=== PATIENT | female | born 1970 | race Caucasian/White ===

== ENCOUNTER → 2016-07-14 | Outpatient (CLI) | payer BC, OTHER ==
--- NOTE | 2016-07-15 10:50 | MM ---
Reason for exam: screening (asymptomatic). Last mammogram was performed 1 year ago. History: Family history of breast cancer in cousin at age 45. Took hormonal contraceptives for 7 years beginning at age 15. Physical Findings: A clinical breast exam by your physician is recommended on an annual basis and results should be correlated with mammographic findings. MG Screening Mammo w CAD Bilateral CC and MLO view(s) were taken. Prior study comparison: July 10, 2015, bilateral MG screening mammo w CAD. June 21, 2014, bilateral MG screening mammo w CAD. There are scattered fibroglandular densities. There is no discrete abnormality. No significant changes when compared with prior studies. ASSESSMENT: Negative, BI-RAD 1 RECOMMENDATION: Routine screening mammogram of both breasts in 1 year.
== END | disposition home or self-care (01) ==
LOC: RADMAMWWP 07:39
PROVIDERS: ATTEND Family Medicine
DX: Z12.31 Encounter for screening mammogram for malignant neoplasm of breast (principal)

== ENCOUNTER → 2016-08-26 | Outpatient (CLI) | payer BC | END | disposition home or self-care (01) | LOC: LABWHC1 11:35 | PROVIDERS: ATTEND Family Medicine | DX: R06.02 Shortness of breath (principal) | CPT/HCPCS: 36415; 93005 ==

== ENCOUNTER → 2016-08-27 | Outpatient (CLI) | payer BC ==
--- NOTE | 2016-08-27 08:33 | XR ---
EXAMINATION TYPE: XR chest 2V DATE OF EXAM: 08/27/2016 COMPARISON: Chest x-ray December 02, 2015. HISTORY: Shortness of breath with chest pain for 2 weeks. TECHNIQUE: Frontal and lateral views of the chest are obtained. FINDINGS: There is no focal air space opacity, pleural effusion, or pneumothorax seen. The cardiac silhouette size is within normal limits. The osseous structures are intact. IMPRESSION: No acute cardiopulmonary process. No significant change from prior.
== END | disposition home or self-care (01) ==
LOC: RADXRMAIN 08:07
PROVIDERS: ATTEND Family Medicine
DX: R06.02 Shortness of breath (principal)
CPT/HCPCS: 71020

== ENCOUNTER → 2016-09-15 | Outpatient (CLI) | payer BC ==
--- NOTE | 2016-09-15 10:16 | ECHOF ---
Referral Reason:R00.2 palpitations MEASUREMENTS -------- HEIGHT: 165.1 cm WEIGHT: 63.5 kg BP: 113/55 IVSd: 0.5 cm (0.6 - 1.1) LVIDd: 3.6 cm (3.9 - 5.3) LVPWd: 0.9 cm (0.6 - 1.1) IVSs: 1.1 cm LVIDs: 2.1 cm LVPWs: 1.3 cm Ao Diam: 2.4 cm (2.0 - 3.7) AV Cusp: 1.7 cm (1.5 - 2.6) LA Diam: 2.9 cm (2.7 - 3.8) MV EXCURSION: 9.870 mm (> 18.000) MV EF SLOPE: 111 mm/s (70 - 150) EPSS: 0.5 cm MV E Michael: 0.92 m/s MV DecT: 143 ms MV A Michael: 0.68 m/s MV E/A Ratio: 1.37 RAP: 5.00 mmHg RVSP: 15.61 mmHg FINDINGS -------- Sinus rhythm. This was a technically good study. Left ventricular wall thickness is normal. Overall left ventricular systolic function is normal with, an EF between 55 - 60 %. The right ventricle is normal in size and function. The left atrium is normal in size. The right atrium is normal in size. The aortic valve is trileaflet, and appears structurally normal. No aortic stenosis or regurgitation. The mitral valve leaflets are mildly thickened. Mild mitral regurgitation is present. Mild tricuspid regurgitation present. The right ventricular systolic pressure, as measured by Doppler, is 15.61mmHg. Pulmonic valve appears structurally normal. The aortic root size is normal. The pericardium is normal. CONCLUSIONS -------- 1. Sinus rhythm. 2. Mild mitral regurgitation is present. 3. Mild tricuspid regurgitation present. 4. The right ventricular systolic pressure, as measured by Doppler, is 15.61mmHg. 5. Pulmonic valve appears structurally normal. 6. The aortic root size is normal. 7. The pericardium is normal. 8. This was a technically good study. 9. Left ventricular wall thickness is normal. 10. Overall left ventricular systolic function is normal with, an EF between 55 - 60 %. 11. The right ventricle is normal in size and function. 12. The left atrium is normal in size. 13. The right atrium is normal in size. 14. The aortic valve is trileaflet, and appears structurally normal. No aortic stenosis or regurgitation. 15. The mitral valve leaflets are mildly thickened. EARLY CHILDHOOD SPECIAL EDUCATOR: Lizbet Ramsay RDCS
== END | disposition home or self-care (01) ==
LOC: RADECHMAIN 08:22
PROVIDERS: ATTEND Family Medicine
DX: I08.1 Rheumatic disorders of both mitral and tricuspid valves (principal)
CPT/HCPCS: 93306

== ENCOUNTER → 2017-05-19 | Outpatient (CLI) | payer BC ==
[2017-05-19 08:19] LABS: Basophils % (A) 0 %; Eosinophils # (A) 0.1 k/uL (0-0.7); Eosinophils % (A) 2 %; HCT 41.7 % (34.0-46.0); HGB 13.7 gm/dL (11.4-16.0); Lymphocytes # (A) 1.7 k/uL (1.0-4.8); Lymphocytes % (A) 36 %; MCH 31.2 pg (25.0-35.0); MCV 94.6 fL (80.0-100.0); Monocytes # (A) 0.3 k/uL (0-1.0); Monocytes % (A) 6 %; Neutrophils # (A) 2.6 k/uL (1.3-7.7); Neutrophils % (A) 54 %; Platelet Count 247 k/uL (150-450); RBC 4.41 m/uL (3.80-5.40); WBC 4.7 k/uL (3.8-10.6)
[2017-05-19 08:29] LABS: ALT 30 U/L (9-52); AST 27 U/L (14-36); Albumin 4.3 g/dL (3.5-5.0); Alkaline Phosphatase 111 U/L (38-126); Amylase 87 U/L (30-110); Anion Gap 7 mmol/L; Blood Urea Nitrogen 15 mg/dL (7-17); Calcium 10.1 mg/dL (8.4-10.2); Carbon Dioxide 30 mmol/L (22-30); Chloride 102 mmol/L (98-107); Glucose 85 mg/dL (74-99); Potassium 4.9 mmol/L (3.5-5.1); Sodium 139 mmol/L (137-145); Total Bilirubin 0.7 mg/dL (0.2-1.3); Total Protein 7.2 g/dL (6.3-8.2)
--- NOTE | 2017-05-19 10:28 | CT ---
EXAMINATION TYPE: CT abdomen w con DATE OF EXAM: 05/19/2017 HISTORY: Right upper quadrant pain. Single kidney CT DLP: 283.60mGycm Automated Exposure Control for Dose Reduction was Utilized. CONTRAST: CT scan of the abdomen is performed with IV Contrast, patient injected with 100 ml mL of Omnipaque 30 0. COMPARISON: 03/09/2017. FINDINGS: LUNG BASES: No significant abnormality is appreciated. LIVER/GB/PANCREAS: The liver is unremarkable in enhancement. Although there are no right upper quadra nt fat stranding changes there is enlargement of the common bile duct measuring up to 7 mm on series 7 image 32 and 34. Pancreatic duct is prominent within the pancreatic body as it measures 3 mm on ser ies 7 image 29 and is also prominent on image 28 of series 7. No peripancreatic fat stranding is seen . No gross evidence of pancreatic mass is identified. The finding of common bile duct dilatation was also identified on the exam of 03/09/2017. No evidence of cholelithiasis. SPLEEN: No significant abnormality is seen. No nodularity. ADRENALS: No significant abnormality is seen. No splenomegaly. KIDNEYS: The left kidney is surgically absent and bowel has prolapsed into the retroperitoneum. BOWEL: No significant abnormality is seen. LYMPH NODES: No greater than 1cm abdominal or pelvic lymph nodes are appreciated. OSSEOUS STRUCTURES: Very minimal degenerative changes of the lumbar spine are noted. IMPRESSION: 1. Common bile duct dilatation without identifiable distal stricture or obstructing mass. No radiopaq ue calculus is seen. MRCP with and without contrast could BE performed to further evaluate for distal obstructing ampullary mass, stricture, or pancreatic mass is the pancreatic duct is mildly prominent . Alternatively if serum laboratory values or abnormal HIDA scan could be performed to evaluate for c holecystitis. 2. Surgical absence of the left kidney.
== END | disposition home or self-care (01) ==
LOC: RADCTMAIN 07:37
PROVIDERS: ATTEND Surgery
DX: K83.8 Other specified diseases of biliary tract (principal); Z90.5 Acquired absence of kidney
CPT/HCPCS: 80053; 82150; 85025; 74160; 36415; Q9967

== ENCOUNTER → 2017-06-07 | Outpatient (CLI) | payer BC ==
--- NOTE | 2017-06-07 09:15 | MR ---
EXAMINATION TYPE: MR MRCP DATE OF EXAM: 06/07/2017 COMPARISON: NONE HISTORY: Right sided pain Standard multiplanar, multisequence MRI departmental protocol Multiplanar, multisequence images of the biliary tree were acquired. Multiple 3-D rotating images are reviewed. Diffusion weighted imaging was performed. FINDINGS: Gallbladder and biliary tree: The gallbladder is of normal caliber. No evidence for wall thickening. No filling defect to suggest cholelithiasis. No evidence for intrahepatic biliary ductal dilatation. Common bile duct is mildly prominent at 7 mm. No filling defects are evident. Mild narrowing suggeste d at the ampulla of Vater without distinct mass. If symptoms persist consider direct visualization. Liver: 2 mm hepatic cyst left hepatic lobe. 3 mm cyst left hepatic lobe medial segment. 3 mm cyst klever r the caudate lobe. No solid hepatic mass is detected. Pancreas: No distinct pancreatic mass. Pancreatic duct is minimally prominent at 3 mm. Kidneys: Solitary right kidney. No evidence for mass hydronephrosis or nephrolithiasis. Abdominal aorta: Normal caliber as visualized. Adrenal glands: No evidence for adrenal mass. Spleen: Normal IMPRESSION: 1. Mild prominence of the common bile duct and pancreatic duct with the suggestion of a narrowing at the level of the ampulla of Vater without distinct mass. If symptoms persist consider direct visualiz ation.
== END | disposition home or self-care (01) ==
LOC: RADMRIMAIN 07:47
PROVIDERS: ATTEND Surgery
DX: K83.8 Other specified diseases of biliary tract (principal)
CPT/HCPCS: 74181

== ENCOUNTER 2017-06-15 12:09 | Day surgery (SDC) | payer BC ==
[2017-06-14 11:53] VITALS: BMI 21.6
[~2017-06-15 12:09] MED LIST: INDOMETHACIN 50MG SUPPOSITORY RECTAL ONE; LACTATED RINGERS 1,000 ML IV SCH; LEVOFLOXACIN 500MG-D5W PMX 500 MG in DEXTROSE/WATER 1 100ML.BAG IVPB ONE; LIDOCAINE 1% 20 ML VIAL (10MG/ML) FOR IV START INTRADERMA PRN
[2017-06-15 12:35] VITALS: RESP 16; TEMP 98.1
[2017-06-15] MEDS: LACTATED RINGERS 1,000 ML IV NR ×2 (12:53→13:40)
[2017-06-15 12:55] LABS: Basophils # (A) 0.1 k/uL (0-0.2); Basophils % (A) 1 %; Eosinophils # (A) 0.1 k/uL (0-0.7); Eosinophils % (A) 1 %; HCT 40.5 % (34.0-46.0); HGB 14.5 gm/dL (11.4-16.0); Lymphocytes # (A) 2.3 k/uL (1.0-4.8); Lymphocytes % (A) 36 %; MCH 32.2 pg (25.0-35.0); MCHC 35.8 g/dL (31.0-37.0); Mean Platelet Volume 6.7; Monocytes # (A) 0.4 k/uL (0-1.0); Monocytes % (A) 6 %; Neutrophils # (A) 3.4 k/uL (1.3-7.7); Neutrophils % (A) 54 %; Platelet Count 242 k/uL (150-450); RDW 11.6 % (11.5-15.5); WBC 6.2 k/uL (3.8-10.6)
[2017-06-15 13:09] LABS: Prothrombin Time 10.2 sec (9.0-12.0)
[2017-06-15 13:11] LABS: Albumin 4.4 g/dL (3.5-5.0); Potassium 4.4 mmol/L (3.5-5.1); Total Bilirubin 0.7 mg/dL (0.2-1.3); Total Protein 7.4 g/dL (6.3-8.2)
[2017-06-15] MEDS ORDERED: LIDOCAINE 1% INJ 10MG/ML (20 ML MDV) ONE (13:40)
[2017-06-15] MEDS ORDERED: MIDAZOLAM 2 MG/2 ML VIAL ONE (13:40)
[2017-06-15] MEDS ORDERED: fentaNYL (PF) 50 MCG/ML 2 ML AMP ONE (13:40)
[2017-06-15] MEDS ORDERED: PROPOFOL 10 MG/ML 20 ML VIAL IV ONE (13:40)
[2017-06-15] MEDS ORDERED: IOHEXOL 350 MG/ML 50ML BOTTLE INJ ONE ×2 (13:45→14:01)
--- NOTE | 2017-06-15 14:34 | FL ---
EXAMINATION TYPE: FL ERCP biliary duct only DATE OF EXAM: 06/15/2017 COMPARISON: NONE HISTORY: Dilated common bile duct, K 83.8 Fluoroscopy support supplied to the referring clinician. See dictated report from gastroenterology, 2.19 minutes fluoroscopy time supplied to the referring clinician, 3 intraoperative C-arm images docu ment the procedure
--- NOTE | 2017-06-15 14:35 | P.PCN ---
Date of Procedure: 06/15/17 Procedure(s) Performed: Procedure: Endoscopic retrograde cholangiography. Preoperative diagnosis: History of abdominal pain and abnormal imaging studies. Postoperative diagnosis: Slight dilation of the common bile duct but no evidence of strictures, filling defects or cystic duct obstruction. Preparation and sedation: Was provided by anesthesia. Brief clinical history: The patient is a 46-year-old female who was scheduled for this evaluation because of history of burning upper abdominal pains and abnormalities initially noted on the ultrasound 03/09/2017 with a dilated common bile duct at 8 mm, with similar findings on computed tomography scan performed 05/19/2017 which showed dilation of the common bile duct without identifiable distal stricture or obstructing mass or any residual opaque calculus. An MRI performed 06/07/2017 showed mild prominence of the common bile duct and pancreatic duct with a suggestion of a narrowing at the level of the ampulla without distinct mass. Procedure: With the patient on her prone position and after informed consent and adequate sedation, I passed the Olympus video duodenoscope down the esophagus into the stomach then passed it through the pylorus into the duodenum. There was no obvious abnormalities noted in the stomach or duodenum. The papilla looked normal. Initial cannulation and injection with dye resulted in opacification of the CBD and biliary tree. There was slight dilation of the common bile duct but no evidence of strictures, encasement, filling defects or cystic duct obstruction. Multiple spot films were obtained. With this finding I did not make any attempt to visualize the pancreatic duct and the endoscope was withdrawn. The patient tolerated the procedure well. Plan: The patient was reassured and I discussed with both herself and her . We will follow her clinical course closely. Repeat laboratory testing and imaging studies could be planned in the future depending on her course.
[2017-06-15 14:47] VITALS: BP 133/77; PULSE 67
== END 2017-06-15 15:01 | disposition home or self-care (01) ==
LOC: ORWHC2ENDO 12:09
DX: K83.8 Other specified diseases of biliary tract (principal); K21.9 Gastro-esophageal reflux disease without esophagitis; M79.7 Fibromyalgia; E07.9 Disorder of thyroid, unspecified; Z88.5 Allergy status to narcotic agent; Z88.8 Allergy status to other drugs, medicaments and biological substances; Z79.890 Hormone replacement therapy; Z79.899 Other long term (current) drug therapy
CPT/HCPCS: 81025; 80053; 85025; 85610; 85730; 74328; 43260; J2250; J1956; J2001; J3010; J2704; Q9967; 43261

== ENCOUNTER → 2017-09-02 | Outpatient (CLI) | payer BC ==
--- NOTE | 2017-09-06 08:16 | MM ---
Reason for exam: screening (asymptomatic). Last mammogram was performed 1 year and 2 months ago. History: Family history of breast cancer in cousin at age 45. Took hormonal contraceptives for 7 years beginning at age 15. Physical Findings: A clinical breast exam by your physician is recommended on an annual basis and results should be correlated with mammographic findings. MG Screening Mammo w CAD Bilateral CC and MLO view(s) were taken. Prior study comparison: July 14, 2016, bilateral MG screening mammo w CAD. July 10, 2015, bilateral MG screening mammo w CAD. There are scattered fibroglandular densities. No significant changes when compared with prior studies. ASSESSMENT: Negative, BI-RAD 1 RECOMMENDATION: Routine screening mammogram of both breasts in 1 year.
== END | disposition home or self-care (01) ==
LOC: RADNMMAIN 12:34
PROVIDERS: ATTEND Family Medicine
DX: Z12.31 Encounter for screening mammogram for malignant neoplasm of breast (principal); R07.89 Other chest pain
CPT/HCPCS: 77067

== ENCOUNTER → 2017-09-29 | Outpatient (CLI) | payer BC ==
--- NOTE | 2017-09-29 12:35 | EST ---
EXERCISE STRESS AGE: 46 SEX: F HT: 5'5" WT: 130 PROTOCOL: Ja Stress Test STAGE: II DURATION OF EXERCISE: 7:00 HEART RATE REST: 71 BLOOD PRESSURE REST: 117/88 MAXIMUM HEART RATE ACHIEVED: 163 MAXIMUM BLOOD PRESSURE: 193/84 85% MPHR: 146 100% MPHR: 172 METS: 8.5 INDICATIONS: Chest pain. CLINICAL INFORMATION: Yessy Nicholas is a 46-year-old female referred by Dr. Zapata for evaluation of chest pain and nausea. Baseline heart rate 71 beats per minute. Baseline blood pressure 117/88 mmHg. Baseline 12-lead ECG shows normal sinus rhythm with subtle early repolarization abnormality inferolaterally. Patient exercised on a Ja protocol for 7 minutes achieving a peak heart rate of 163 beats per minute. Normal blood pressure response to exercise. No chest pain. She denied shortness of breath and tiredness at peak exercise. No ECG evidence for ischemia. No arrhythmias noted. Normal blood pressure in response to exercise. MMODL / IJN: [id number] /
== END | disposition home or self-care (01) ==
LOC: RADNMMAIN 08:29
PROVIDERS: ATTEND Family Medicine
DX: R07.89 Other chest pain (principal)
CPT/HCPCS: 93017

== ENCOUNTER → 2018-02-08 | Outpatient (CLI) | payer BC | END | disposition home or self-care (01) | LOC: LABWHC1 12:01 | PROVIDERS: ATTEND Surgery | DX: Z52.4 Kidney donor (principal) | CPT/HCPCS: 36415; 82565; 84156 ==

== ENCOUNTER → 2018-11-04 | Outpatient (CLI) | payer BC ==
--- NOTE | 2018-11-08 09:29 | MM ---
Reason for exam: screening (asymptomatic). Last mammogram was performed 1 year and 2 months ago. History: Patient is postmenopausal. Family history of breast cancer in cousin at age 45. Took hormonal contraceptives for 7 years beginning at age 15. Physical Findings: A clinical breast exam by your physician is recommended on an annual basis and results should be correlated with mammographic findings. MG Screening Mammo w CAD Bilateral CC and MLO view(s) were taken. Prior study comparison: September 02, 2017, bilateral MG screening mammo w CAD. July 14, 2016, bilateral MG screening mammo w CAD. There are scattered fibroglandular densities. No significant changes when compared with prior studies. ASSESSMENT: Negative, BI-RAD 1 RECOMMENDATION: Routine screening mammogram of both breasts in 1 year.
== END ==
LOC: RADMAMWWP 14:54
PROVIDERS: ATTEND Family Medicine
DX: Z12.31 Encounter for screening mammogram for malignant neoplasm of breast (principal)
CPT/HCPCS: 77067

== ENCOUNTER 2019-04-26 10:00 | Day surgery (SDC) | payer BC ==
[2019-04-24 09:26] VITALS: BMI 22.3
--- NOTE | 2019-04-26 08:41 | P.GSHP ---
History of Present Illness H&P Date: 04/26/19 CHIEF COMPLAINT: Colon screen HISTORY OF PRESENT ILLNESS: The patient is a 48-year-old female who presents for colon screen. Lower endoscopy was offered for further evaluation and management. PAST MEDICAL HISTORY: Please see list. PAST SURGICAL HISTORY: Please see list. MEDICATIONS: Please see list. ALLERGIES: Please see list. SOCIAL HISTORY: No illicit drug use FAMILY HISTORY: No reports of Crohn disease or ulcerative colitis. REVIEW OF ORGAN SYSTEMS: CONSTITUTIONAL: No reports of fevers or chills. PHYSICAL EXAM: VITAL SIGNS: Stable GENERAL: Well-developed pleasant in no acute distress. HEENT: No scleral icterus. Extraocular movements grossly intact. Moist buccal mucosa. NECK: Supple without lymphadenopathy. CHEST: Unlabored respirations. Equal bilateral excursions. CARDIOVASCULAR: Regular rate and rhythm. Distal 2+ pulses. ABDOMEN: Soft, nontender, nondistended. MUSCULOSKELETAL: No clubbing, cyanosis, or edema. ASSESSMENT: 1. Colon screen. PLAN: 1. Recommend proceeding with a lower endoscopy Past Medical History Past Medical History: Thyroid Disorder Additional Past Medical History / Comment(s): UPPER ABDOMINAL PAIN History of Any Multi-Drug Resistant Organisms: None Reported Additional Past Surgical History / Comment(s): LEFT KIDNEY REMOVED- DONATION , OLD BLOOD CLOT REMOVED NEAR LEFT SHOULDER Past Anesthesia/Blood Transfusion Reactions: Postoperative Nausea & Vomiting (PONV) Smoking Status: Former smoker - Past Family History Father Family Medical History: Cancer Additional Family Medical History / Comment(s): LUNG CANCER Medications and Allergies Home Medications Medication Instructions Recorded Confirmed Type ALPRAZolam [Xanax] 1 mg PO BID PRN 06/14/17 04/24/19 History Acetaminophen Tab [Tylenol Tab] 650 mg PO Q4H 06/14/17 04/24/19 History Citalopram Hydrobromide [CeleXA] 40 mg PO DAILY 06/14/17 04/24/19 History Gabapentin [Neurontin] 100 mg PO BID 06/14/17 04/24/19 History Levothyroxine Sodium [Synthroid] 112 mcg PO DAILY 06/14/17 04/24/19 History Calcium Carbonate [Calcium] 600 mg PO DAILY 04/24/19 04/24/19 History Allergies Allergy/AdvReac Type Severity Reaction Status Date / Time metoclopramide [From Reglan] Allergy SEVERE Verified 04/24/19 09:20 SHAKING OF LEGS codeine AdvReac Vomiting Verified 04/24/19 09:20
[~2019-04-26 10:00] MED LIST changes: -INDOMETHACIN 50MG SUPPOSITORY RECTAL ONE; -LEVOFLOXACIN 500MG-D5W PMX 500 MG in DEXTROSE/WATER 1 100ML.BAG IVPB ONE
[2019-04-26 10:32] VITALS: TEMP 97.7
[2019-04-26] MEDS ORDERED: PROPOFOL 10 MG/ML 20 ML VIAL IV ONE (11:33)
[2019-04-26 12:54] VITALS: BP 119/82; PULSE 69; RESP 18
--- NOTE | 2019-05-04 10:54 | P.PCN ---
Date of Procedure: 04/26/19 Description of Procedure: PREOPERATIVE DIAGNOSIS: Colonoscopy screening. POSTOPERATIVE DIAGNOSIS: Colonoscopy screening. Diverticulosis, scattered. OPERATION: Colonoscopy to the ileocecal valve and appendiceal orifice. SURGEON: Tia Allen MD. ANESTHESIA: MAC. INDICATIONS: The patient is a 57-year-old female who presents for colonoscopy screening. Benefits and risks were described and informed consent was obtained. DESCRIPTION OF PROCEDURE: The patient had undergone Gatorade, MiraLAX and Dulcolax prep. He had been brought into the operating room and laid in the left lateral decubitus position. After adequate intravenous sedation, the rectum was examined with 2% lidocaine jelly. No external hemorrhoids were encountered. The rectal tone was within normal limits. No lesions were palpated in the rectal vault. An Olympus colonoscope was advanced until the ileocecal valve and appendiceal orifice were clearly viewed. The prep was excellent with clear visualization of the mucosal folds. The scope was removed with visualization of each mucosal fold. Scattered diverticulosis was encountered. No colonic polyps were found. No evidence of focal colitis was found. Retroflexion of the scope demonstrated grade 1 internal hemorrhoids without active bleeding or inflammation. The colon was desufflated. The patient had tolerated the procedure well. Withdrawal time was over 6 minutes. FINDINGS: Aronchick preparation quality scale (1-5) Internal hemorrhoids, grade 1 No external prolapsed hemorrhoids. No arteriovenous malformations. No adenomatous polyps. No focal colitis. RECOMMENDATIONS: Lower endoscopy every 10 years per screening guidelines; however down to 5 years with family history of colon polyps or cancer. Plan - Discharge Summary Discharge Rx Participant: No New Discharge Prescriptions: Continue Acetaminophen Tab [Tylenol] 650 mg PO Q4H Levothyroxine Sodium [Synthroid] 112 mcg PO DAILY Gabapentin [Neurontin] 100 mg PO BID Citalopram Hydrobromide [CeleXA] 40 mg PO DAILY ALPRAZolam [Xanax] 1 mg PO BID PRN PRN Reason: Anxiety Calcium Carbonate [Calcium] 600 mg PO DAILY Discharge Medication List ALPRAZolam [Xanax] 1 mg PO BID PRN 06/14/17 [History] Acetaminophen Tab [Tylenol] 650 mg PO Q4H 06/14/17 [History] Citalopram Hydrobromide [CeleXA] 40 mg PO DAILY 06/14/17 [History] Gabapentin [Neurontin] 100 mg PO BID 06/14/17 [History] Levothyroxine Sodium [Synthroid] 112 mcg PO DAILY 06/14/17 [History] Calcium Carbonate [Calcium] 600 mg PO DAILY 04/24/19 [History] Follow up Appointment(s)/Referral(s): Tia Allen MD [STAFF PHYSICIAN] - As Needed Patient Instructions/Handouts: *[facility] - (Anesthesia) Endoscopy Discharge Instructions Activity/Diet/Wound Care/Special Instructions: Repeat colonoscopy 10 years, 2030 or Cologaurd Discharge Disposition: HOME SELF-CARE
--- NOTE | 2019-05-04 10:55 | P.PCN ---
Date of Procedure: 04/26/19 Description of Procedure: PREOPERATIVE DIAGNOSIS: Colonoscopy screening. POSTOPERATIVE DIAGNOSIS: Colonoscopy screening. OPERATION: Colonoscopy to the ileocecal valve and appendiceal orifice. SURGEON: Tia Allen MD. ANESTHESIA: MAC. INDICATIONS: The patient is a 48-year-old female who presents for her first colonoscopy screening. Benefits and risks were described and informed consent was obtained. DESCRIPTION OF PROCEDURE: The patient had undergone Suprep. She had been brought into the operating room and laid in the left lateral decubitus position. After adequate intravenous sedation, the rectum was examined with 2% lidocaine jelly. No external hemorrhoids were encountered. The rectal tone was within normal limits. No lesions were palpated in the rectal vault. An Olympus colonoscope was advanced until the ileocecal valve and appendiceal orifice were clearly viewed. The prep was excellent with clear visualization of the mucosal folds. The scope was removed with visualization of each mucosal fold. No scattered diverticulosis was encountered. No colonic polyps were found. No evidence of focal colitis was found. Retroflexion of the scope demonstrated grade 1 internal hemorrhoids without active bleeding or inflammation. The colon was desufflated. The patient had tolerated the procedure well. Withdrawal time was over 6 minutes. FINDINGS: Aronchick preparation quality scale 1 (1-5) Internal hemorrhoids, grade 1 No external prolapsed hemorrhoids. No arteriovenous malformations. No adenomatous polyps. No focal colitis. No sigmoid diverticulosis RECOMMENDATIONS: Lower endoscopy in 10 years, 2030 or Cologaurd Plan - Discharge Summary Discharge Rx Participant: No New Discharge Prescriptions: Continue Acetaminophen Tab [Tylenol] 650 mg PO Q4H Levothyroxine Sodium [Synthroid] 112 mcg PO DAILY Gabapentin [Neurontin] 100 mg PO BID Citalopram Hydrobromide [CeleXA] 40 mg PO DAILY ALPRAZolam [Xanax] 1 mg PO BID PRN PRN Reason: Anxiety Calcium Carbonate [Calcium] 600 mg PO DAILY Discharge Medication List ALPRAZolam [Xanax] 1 mg PO BID PRN 06/14/17 [History] Acetaminophen Tab [Tylenol] 650 mg PO Q4H 06/14/17 [History] Citalopram Hydrobromide [CeleXA] 40 mg PO DAILY 06/14/17 [History] Gabapentin [Neurontin] 100 mg PO BID 06/14/17 [History] Levothyroxine Sodium [Synthroid] 112 mcg PO DAILY 06/14/17 [History] Calcium Carbonate [Calcium] 600 mg PO DAILY 04/24/19 [History] Follow up Appointment(s)/Referral(s): Tia Allen MD [STAFF PHYSICIAN] - As Needed Patient Instructions/Handouts: *[facility] - (Anesthesia) Endoscopy Discharge Instructions Activity/Diet/Wound Care/Special Instructions: Repeat colonoscopy 10 years, 2030 or Cologaurd Discharge Disposition: HOME SELF-CARE
== END 2019-04-26 12:32 | disposition home or self-care (01) ==
LOC: ORWHC2ENDO 10:00
PROVIDERS: ATTEND Surgery Plastic and Reconstructive Surgery
DX: Z12.11 Encounter for screening for malignant neoplasm of colon (principal); K64.0 First degree hemorrhoids; E07.9 Disorder of thyroid, unspecified; Z90.5 Acquired absence of kidney; Z87.891 Personal history of nicotine dependence; Z80.1 Family history of malignant neoplasm of trachea, bronchus and lung; F39 Unspecified mood [affective] disorder; Z79.890 Hormone replacement therapy; Z79.899 Other long term (current) drug therapy; Z88.5 Allergy status to narcotic agent; Z88.8 Allergy status to other drugs, medicaments and biological substances
CPT/HCPCS: J2704; G0121

== ENCOUNTER → 2019-11-30 | Outpatient (CLI) | payer BC ==
--- NOTE | 2019-12-01 11:12 | MM ---
Reason for exam: screening (asymptomatic). Last mammogram was performed 1 year and 1 month ago. History: Patient is postmenopausal. Family history of breast cancer in cousin at age 45. Took hormonal contraceptives for 7 years beginning at age 15. Physical Findings: A clinical breast exam by your physician is recommended on an annual basis and results should be correlated with mammographic findings. MG Screening Mammo w CAD Bilateral CC, MLO, and XCCL view(s) were taken. Prior study comparison: November 04, 2018, bilateral MG screening mammo w CAD. September 02, 2017, bilateral MG screening mammo w CAD. There are scattered fibroglandular densities. No significant changes when compared with prior studies. ASSESSMENT: Negative, BI-RAD 1 RECOMMENDATION: Routine screening mammogram of both breasts in 1 year.
== END | disposition home or self-care (01) ==
LOC: RADMAMWWP 16:12
PROVIDERS: ATTEND Family Medicine
DX: Z12.31 Encounter for screening mammogram for malignant neoplasm of breast (principal)
CPT/HCPCS: 77067

== ENCOUNTER → 2020-12-10 | Outpatient (CLI) | payer BC ==
--- NOTE | 2020-12-12 13:30 | MM ---
Reason for exam: screening (asymptomatic). Last mammogram was performed 1 year ago. History: Patient is postmenopausal. Family history of breast cancer in maternal cousin at age 45 and breast cancer in maternal aunt. Took hormonal contraceptives for 7 years beginning at age 15. Taking estrogen for 1 year. Taking progesterone for 1 year. Physical Findings: A clinical breast exam by your physician is recommended on an annual basis and results should be correlated with mammographic findings. MG Screening Mammo w CAD Bilateral CC and MLO view(s) were taken. Prior study comparison: November 30, 2019, bilateral MG screening mammo w CAD. November 04, 2018, bilateral MG screening mammo w CAD. There are scattered fibroglandular densities. No significant changes when compared with prior studies. ASSESSMENT: Negative, BI-RAD 1 RECOMMENDATION: Routine screening mammogram of both breasts in 1 year.
== END | disposition home or self-care (01) ==
LOC: RADMAMWWP 11:56
PROVIDERS: ATTEND Obstetrics & Gynecology
DX: Z12.31 Encounter for screening mammogram for malignant neoplasm of breast (principal); Z80.3 Family history of malignant neoplasm of breast; Z78.0 Asymptomatic menopausal state
CPT/HCPCS: 77067

== ENCOUNTER 2021-10-07 18:46 | Observation (INO) | payer BC ==
[2021-10-07] MEDS ORDERED: SODIUM CHLORIDE 0.9% 2,000 ML IV STA (19:05)
[2021-10-07] MEDS ORDERED: ACETAMINOPHEN TAB 500 MG TAB PO STA (19:27)
[2021-10-07 20:10] LABS: Basophils % (A) 0 %; Eosinophils # (A) 0.1 k/uL (0-0.7); Eosinophils % (A) 1 %; HCT 39.4 % (34.0-46.0); HGB 12.7 gm/dL (11.4-16.0); Lymphocytes # (A) 0.6 k/uL (1.0-4.8); Lymphocytes % (A) 8 %; MCH 31.9 pg (25.0-35.0); MCHC 32.3 g/dL (31.0-37.0); MCV 98.9 fL (80.0-100.0); Mean Platelet Volume 7.5; Monocytes # (A) 0.1 k/uL (0-1.0); Monocytes % (A) 2 %; Neutrophils # (A) 7.3 k/uL (1.3-7.7); Neutrophils % (A) 90 %; Platelet Count 156 k/uL (150-450); RBC 3.99 m/uL (3.80-5.40); RDW 11.9 % (11.5-15.5); WBC 8.2 k/uL (3.8-10.6)
--- NOTE | 2021-10-07 20:10 | ED ---
Female Urogenital HPI - General Chief complaint: Urogenital Stated complaint: UTI,Chills Time Seen by Provider: 10/07/21 18:52 Source: patient Mode of arrival: ambulatory Limitations: no limitations - History of Present Illness Initial comments: Patient is a 51-year-old female presenting with chief complaint of flank pain. 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 Patient has been experiencing 1 day of flank pain and chills, she was seen at her primary care office today and diagnosed with UTI. She was given a shot of Rocephin in the office and a prescription for Bactrim. Patient states as the day has gone on her chills have worsened and she is felt like her heart is racing. She took a combination ibuprofen and acetaminophen at 6:00 before coming here today. She states that her urine is malodorous and cloudy. She denies any dysuria, hematuria, urgency, frequency, abdominal pain, chest pain, shortness of breath, diarrhea, hematochezia, melena - Related Data Home Medications Medication Instructions Recorded Confirmed Citalopram Hydrobromide [CeleXA] 40 mg PO DAILY 06/14/17 10/07/21 Gabapentin [Neurontin] 100 mg PO BID 06/14/17 10/07/21 Levothyroxine Sodium [Synthroid] 112 mcg PO DAILY 06/14/17 10/07/21 ALPRAZolam [Xanax] 0.5 mg PO DAILY PRN 10/07/21 10/07/21 Albuterol Inhaler [Ventolin Hfa 2 puff INHALATION RT-Q4H PRN 10/07/21 10/07/21 Inhaler] Atorvastatin [Lipitor] 10 mg PO HS 10/07/21 10/07/21 Co Q-10 200mg 200 mg PO HS 10/07/21 10/07/21 [place]-3/Dha/Epa/Fish Oil [Fish Oil 1 cap PO HS 10/07/21 10/07/21 1,000 mg Softgel] Progesterone, Micronized 200 mg PO DAILY 10/07/21 10/07/21 [Progesterone] traZODone HCL [Desyrel] 100 mg PO HS 10/07/21 10/07/21 Allergies Allergy/AdvReac Type Severity Reaction Status Date / Time metoclopramide [From Reglan] Allergy SEVERE Verified 10/07/21 23:18 SHAKING OF LEGS codeine AdvReac Vomiting Verified 10/07/21 23:18 Review of Systems ROS Statement: Those systems with pertinent positive or pertinent negative responses have been documented in the HPI. ROS Other: All systems not noted in ROS Statement are negative. Past Medical History Past Medical History: Thyroid Disorder Additional Past Medical History / Comment(s): UPPER ABDOMINAL PAIN History of Any Multi-Drug Resistant Organisms: None Reported Additional Past Surgical History / Comment(s): LEFT KIDNEY REMOVED- DONATION , OLD BLOOD CLOT REMOVED NEAR LEFT SHOULDER Past Anesthesia/Blood Transfusion Reactions: Postoperative Nausea & Vomiting (PONV) Past Psychological History: Anxiety Smoking Status: Never smoker Past Alcohol Use History: Occasional Past Drug Use History: None Reported - Past Family History Father Family Medical History: Cancer Additional Family Medical History / Comment(s): LUNG CANCER General Exam Limitations: no limitations General appearance: alert, in no apparent distress Head exam: Present: atraumatic, normocephalic, normal inspection Eye exam: Present: normal appearance, EOMI. Absent: scleral icterus, periorbital swelling Neck exam: Present: normal inspection Respiratory exam: Present: normal lung sounds bilaterally. Absent: respiratory distress, wheezes, rales, rhonchi, stridor Cardiovascular Exam: Present: normal rhythm, tachycardia, normal heart sounds. Absent: systolic murmur, diastolic murmur, rubs, gallop, clicks GI/Abdominal exam: Present: soft. Absent: distended, tenderness, guarding, rebound, rigid Back exam: Present: normal inspection. Absent: CVA tenderness (R), CVA tenderness (L) Neurological exam: Present: alert, oriented X3, CN II-XII intact Psychiatric exam: Present: normal affect, normal mood Skin exam: Present: warm, dry, intact, normal color. Absent: rash Course Vital Signs 10/07/21 10/07/21 10/07/21 18:48 20:08 21:15 Temperature 98.3 F Pulse Rate 121 H 105 H 97 Respiratory 16 18 Rate Blood Pressure 150/85 108/69 O2 Sat by Pulse 100 98 98 Oximetry Medical Decision Making - Medical Decision Making Patient is a 51-year-old female presenting with chief complaint of right-sided flank pain, chills, and tachycardia. 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 On examination there is no CVA or abdominal tenderness. Patient has a temp 99.1 and is tachycardic at 120 bpm. She is given 2 L normal saline fluid bolus and placed on maintenance rate of 130 mL per hour. She is given Tylenol. No leukocytosis. Creatinine 1.26. Lactic acid 3.3. Mild transaminitis. Urine is cloudy, small blood, large leukocytes, there are urine WBC and WBC clumps, and few bacteria. CT of the abdomen and pelvis without contrast shows no evidence of pyelonephritis. Given the patie nt's nephrectomy and her initial presentation, he would be in her best interest to stay for IV antibiotics and further monitoring. Patient is given 2 g Rocephin. I spoke with Dr. Flores who agreed to admit the patient. I explained these findings and the plan to the patient, she conveyed verbal understanding and agreed to the plan. I discussed this case with my attending Dr. Pierre. - Lab Data Result diagrams: 10/07/21 19:32 10/07/21 19:32 Lab Results 10/07/21 10/07/21 10/07/21 Range/Units 19:32 19:32 19:32 WBC 8.2 (3.8-10.6) k/uL RBC 3.99 (3.80-5.40) m/uL Hgb 12.7 (11.4-16.0) gm/dL Hct 39.4 (34.0-46.0) % MCV 98.9 (80.0-100.0) fL MCH 31.9 (25.0-35.0) pg MCHC 32.3 (31.0-37.0) g/dL RDW 11.9 (11.5-15.5) % Plt Count 156 (150-450) k/uL MPV 7.5 Neutrophils % 90 % Lymphocytes % 8 % Monocytes % 2 % Eosinophils % 1 % Basophils % 0 % Neutrophils # 7.3 (1.3-7.7) k/uL Lymphocytes # 0.6 L (1.0-4.8) k/uL Monocytes # 0.1 (0-1.0) k/uL Eosinophils # 0.1 (0-0.7) k/uL Basophils # 0.0 (0-0.2) k/uL Sodium 133 L (137-145) mmol/L Potassium 4.0 (3.5-5.1) mmol/L Chloride 102 (98-107) mmol/L Carbon Dioxide 17 L (22-30) mmol/L Anion Gap 14 mmol/L BUN 17 (7-17) mg/dL Creatinine 1.26 H (0.52-1.04) mg/dL Est GFR (CKD-EPI)AfAm 56 (>60 ml/min/1.73 sqM) Est GFR (CKD-EPI)NonAf 49 (>60 ml/min/1.73 sqM) Glucose 98 (74-99) mg/dL Lactic Ac Sepsis Rflx Plasma Lactic Acid [place] (0.7-2.0) mmol/L Calcium 9.5 (8.4-10.2) mg/dL Total Bilirubin 0.5 (0.2-1.3) mg/dL AST 54 H (14-36) U/L ALT 39 H (4-34) U/L Alkaline Phosphatase 110 (38-126) U/L Total Protein 7.0 (6.3-8.2) g/dL Albumin 4.3 (3.5-5.0) g/dL Amylase 79 (30-110) U/L Lipase 144 (23-300) U/L Urine Color Colorless Urine Appearance Cloudy H (Clear) Urine pH 5.5 (5.0-8.0) Ur Specific Edgar 1.004 (1.001-1.035) Urine Protein Negative (Negative) Urine Glucose (UA) Negative (Negative) Urine Ketones Negative (Negative) Urine Blood Small H (Negative) Urine Nitrite Negative (Negative) Urine Bilirubin Negative (Negative) Urine Urobilinogen <2.0 (<2.0) mg/dL Ur Leukocyte Esterase Large H (Negative) Urine RBC 1 (0-5) /hpf Urine WBC 22 H (0-5) /hpf Urine WBC Clumps Few H (None) /hpf Ur Squamous Epith Cells 3 (0-4) /hpf Urine Bacteria Few H (None) /hpf Urine Mucus Rare H (None) /hpf 10/07/21 10/07/21 Range/Units 19:32 20:34 WBC (3.8-10.6) k/uL RBC (3.80-5.40) m/uL Hgb (11.4-16.0) gm/dL Hct (34.0-46.0) % MCV (80.0-100.0) fL MCH (25.0-35.0) pg MCHC (31.0-37.0) g/dL RDW (11.5-15.5) % Plt Count (150-450) k/uL MPV Neutrophils % % Lymphocytes % % Monocytes % % Eosinophils % % Basophils % % Neutrophils # (1.3-7.7) k/uL Lymphocytes # (1.0-4.8) k/uL Monocytes # (0-1.0) k/uL Eosinophils # (0-0.7) k/uL Basophils # (0-0.2) k/uL Sodium (137-145) mmol/L Potassium (3.5-5.1) mmol/L Chloride (98-107) mmol/L Carbon Dioxide (22-30) mmol/L Anion Gap mmol/L BUN (7-17) mg/dL Creatinine (0.52-1.04) mg/dL Est GFR (CKD-EPI)AfAm (>60 ml/min/1.73 sqM) Est GFR (CKD-EPI)NonAf (>60 ml/min/1.73 sqM) Glucose (74-99) mg/dL Lactic Ac Sepsis Rflx Y Plasma Lactic Acid [place] 3.3 H* (0.7-2.0) mmol/L Calcium (8.4-10.2) mg/dL Total Bilirubin (0.2-1.3) mg/dL AST (14-36) U/L ALT (4-34) U/L Alkaline Phosphatase (38-126) U/L Total Protein (6.3-8.2) g/dL Albumin (3.5-5.0) g/dL Amylase (30-110) U/L Lipase (23-300) U/L Urine Color Urine Appearance (Clear) Urine pH (5.0-8.0) Ur Specific Edgar (1.001-1.035) Urine Protein (Negative) Urine Glucose (UA) (Negative) Urine Ketones (Negative) Urine Blood (Negative) Urine Nitrite (Negative) Urine Bilirubin (Negative) Urine Urobilinogen (<2.0) mg/dL Ur Leukocyte Esterase (Negative) Urine RBC (0-5) /hpf Urine WBC (0-5) /hpf Urine WBC Clumps (None) /hpf Ur Squamous Epith Cells (0-4) /hpf Urine Bacteria (None) /hpf Urine Mucus (None) /hpf Disposition Clinical Impression: Urinary tract infection, Pyelonephritis Disposition: ADMITTED IP TO THIS HOSP Condition: Fair Time of Disposition: 22:11 Decision to Admit Reason: Admit from EC Decision Date: 10/07/21 Decision Time: 22:11
[2021-10-07 20:12] LABS: Appearance,Urine Cloudy (Clear); Bacteria,Urine Few /hpf; Bilirubin,Urine Negative (Negative); Blood,Urine Small (Negative); Color,Urine Colorless; Glucose,Urine (UA) Negative (Negative); Ketones,Urine Negative (Negative); Leukocyte Esterase,Urine Large (Negative); Mucus,Urine Rare /hpf; Nitrite,Urine Negative (Negative); PH, Urine 5.5 (5.0-8.0); Protein,Urine Negative (Negative); RBC,Urine 1 /hpf (0-5); Specific Gravity,Urine 1.004 (1.001-1.035); Squamous Epithelial Cell,Urine 3 /hpf (0-4); Urobilinogen,Urine <2.0 mg/dL (<2.0); WBC,Urine 22 /hpf (0-5)
[2021-10-07 20:20] LABS: Albumin 4.3 g/dL (3.5-5.0); Calcium 9.5 mg/dL (8.4-10.2); Total Bilirubin 0.5 mg/dL (0.2-1.3)
[2021-10-07] MEDS: SODIUM CHLORIDE 0.9% 1,000 ML IV SCH (21:32)
--- NOTE | 2021-10-07 21:35 | CT ---
EXAMINATION TYPE: CT abdomen pelvis wo con DATE OF EXAM: 10/07/2021 COMPARISON: 05/19/2017 HISTORY: flank pain. UTI. Pt only has [address] DLP: 484.3 mGycm Automated exposure control for dose reduction was used. Images obtained from the diaphragm to the floor the pelvis with no contrast. The lung bases are clear of consolidation. There is mild subsegmental atelectasis at the lung bases. Heart size is normal. No pericardial effusion. Liver spleen appear intact. The bile ducts are not dilated. No evidence of pancreatic mass. Gallbladd er appears normal. The stomach is intact. There is no adrenal mass. There are clips apparently from left nephrectomy. The right kidney shows no rmal size. No hydronephrosis. Right ureter not dilated. No retroperitoneal adenopathy. Bladder disten ds smoothly. No internal hernia. No free fluid in the pelvis. Appendix appears normal. There is no mesenteric edema. No ascites or free air. No sign of a bowel obstruction. The lumbar vertebrae have normal alignment. There is disc space narrowing and vacuum disc from L3 to S1. The bony pelvis is intact. IMPRESSION: No evidence of renal stone or obstruction. I do not see any perinephric edema to suggest pyelonephrit is. Left nephrectomy noted. No change compared to old exam. Pyelonephritis is not well detected with no contrast. Normal appendix.
[2021-10-07] MEDS ORDERED: ACETAMINOPHEN TAB 325 MG TAB PO PRN (22:09)
[2021-10-07] MEDS ORDERED: NALOXONE 0.4 MG/ML 1 ML VIAL IV PRN (22:09)
[2021-10-08] MEDS: SODIUM CHLORIDE 0.9% 1,000 ML IV SCH ×2 (02:12→15:13)
[2021-10-08 04:38] LABS: Basophils % (A) 0 %; Eosinophils # (A) 0.1 k/uL (0-0.7); Eosinophils % (A) 1 %; HCT 35.1 % (34.0-46.0); HGB 11.6 gm/dL (11.4-16.0); Lymphocytes # (A) 1.6 k/uL (1.0-4.8); Lymphocytes % (A) 16 %; MCH 33.4 pg (25.0-35.0); MCV 101.2 fL (80.0-100.0); Monocytes # (A) 0.5 k/uL (0-1.0); Monocytes % (A) 5 %; Neutrophils # (A) 8.2 k/uL (1.3-7.7); Neutrophils % (A) 78 %; Platelet Count 153 k/uL (150-450); RBC 3.47 m/uL (3.80-5.40); RDW 12.4 % (11.5-15.5); WBC 10.6 k/uL (3.8-10.6)
[2021-10-08 04:48] LABS: Albumin 2.7 g/dL (3.5-5.0); Calcium 7.6 mg/dL (8.4-10.2); Potassium 3.7 mmol/L (3.5-5.1); Total Bilirubin 0.3 mg/dL (0.2-1.3); Total Protein 4.9 g/dL (6.3-8.2)
[2021-10-08] MEDS ORDERED: ALBUTEROL HFA INHALER INHALATION PRN (10:13)
[2021-10-08] MEDS ORDERED: ALPRAZolam 0.5 MG TAB PO PRN (10:13)
[2021-10-08] MEDS: CITALOPRAM HYDROBROMIDE 20 MG TAB PO SCH (11:19)
[2021-10-08] MEDS: GABAPENTIN 100 MG CAP PO SCH ×2 (11:20→20:45)
[2021-10-08] MEDS: LEVOTHYROXINE 112 MCG TAB PO SCH (11:20)
[2021-10-08] MEDS: NON FORMULARY DRUG (Progesterone, Micronized [Progesterone] 200 MG Capsule) PO SCH (11:42)
--- NOTE | 2021-10-08 12:50 | XR ---
EXAMINATION TYPE: XR chest 1V DATE OF EXAM: 10/08/2021 HISTORY: Shortness of breath. COMPARISON: 08/27/2016 TECHNIQUE: Single view of the chest is submitted. FINDINGS: Demonstrated are scattered senescent parenchymal change. Increased basilar markings may reflect underlying atelectasis and/or developing infiltrate. The heart is stable. Hilar and mediastinal structures are within normal limits. Degenerative changes are seen of the dorsal spine. IMPRESSION: 1. Increased basilar markings may reflect underlying atelectasis and/or developing infiltrate.
[2021-10-08] MEDS: HEPARIN SODIUM,PORCINE/PF 5,000 UNIT/0.5 ML SYRINGE SQ SCH ×2 (17:01→20:46)
[2021-10-08] MEDS ORDERED: traZODone HCL 100 MG TAB PO SCH (21:00)
[2021-10-08] MEDS ORDERED: CO Q10 200 MG PO SCH (21:00)
[2021-10-08] MEDS ORDERED: NON FORMULARY DRUG (Omega-3/Dha/Epa/Fish Oil [Fish Oil 1,000 Mg Softgel] 1 EACH Capsule) PO SCH (21:00)
[2021-10-08] MEDS ORDERED: ATORVASTATIN 10 MG TAB PO SCH (21:00)
--- NOTE | 2021-10-08 22:07 | P.HPIM ---
History of Present Illness H&P Date: 10/08/21 Chief Complaint: Right flank pain Patient is a 51-year-old female with a known history of hypothyroidism, anxiety and history of 1 kidney donation presents to the ER with complaints of right flank pain. Patient states that she started having right flank pain 1 day before the admission and has been having chills at home. Patient was seen by her primary care physician's office and was diagnosed with urinary tract infection. Patient was given a dose of ceftriaxone in the office and was sent home with a prescription for Bactrim. Patient felt worsening symptoms upon susanne jumana home and felt like heart racing or fast. Did take ibuprofen and acetaminophen before coming to ER. Patient also noticed to have malodorous and cloudy urine. Denied any lower abdominal discomfort or dysuria. No prior history of renal stones. No frequency or urgency. No complaints of chest pain or shortness of breath. No nausea vomiting abdominal pain or diarrhea. On admission patient was tachycardic with heart rate 121 respirations 16 and pulse ox 90% on room air. CT of the abdomen pelvis showed no evidence for renal stone or obstruction. No perinephric edema to suggest pyelonephritis. Left nephrectomy noted. No change compared to old exam. Pyelonephritis is not well detected with no contrast. Laboratory test showed WBC 8.2 hemoglobin 12.7 platelets 156 Sodium 133 potassium 4.0 chloride 102 bicarb is 17 BUN 17 and creatinine 1.26 and plasma lactic acid 3.3 Calcium 9.5 AST 54 ALT 39 and alk phos 110 and lipase level is 144 Urinalysis showed cloudy with small blood and large leukocyte esterase with elevated WBCs. Review of Systems Constitutional: Patient denies any fever. Does have chills and generalized weakness. Abdomen: Patient denied any nausea or vomiting or abd. pain Cardiovascular: Patient denies any chest pain or short of breath no palpitations. Respiratory: patient denied any cough is from production. No shortness of breath Neurologic: Patient denied any numbness or tingling headache. Musculoskeletal: Patient denies any complaints of joint swelling or deformity. Skin: Negative Psychiatric: Negative Endocrine: No heat or cold intolerance. No recent weight gain. Genitourinary: No dysuria or hematuria. Malodorous and cloudy urine. All other 14 point ROS negative except the above Past Medical History Past Medical History: Thyroid Disorder Additional Past Medical History / Comment(s): UPPER ABDOMINAL PAIN History of Any Multi-Drug Resistant Organisms: None Reported Additional Past Surgical History / Comment(s): LEFT KIDNEY REMOVED- DONATION , OLD BLOOD CLOT REMOVED NEAR LEFT SHOULDER Past Anesthesia/Blood Transfusion Reactions: Postoperative Nausea & Vomiting (PONV) Past Psychological History: Anxiety Smoking Status: Never smoker Past Alcohol Use History: Occasional Past Drug Use History: None Reported - Past Family History Father Family Medical History: Cancer Additional Family Medical History / Comment(s): LUNG CANCER Medications and Allergies Home Medications Medication Instructions Recorded Confirmed Type Citalopram Hydrobromide [CeleXA] 40 mg PO DAILY 06/14/17 10/07/21 History Gabapentin [Neurontin] 100 mg PO BID 06/14/17 10/07/21 History Levothyroxine Sodium [Synthroid] 112 mcg PO DAILY 06/14/17 10/07/21 History ALPRAZolam [Xanax] 0.5 mg PO DAILY PRN 10/07/21 10/07/21 History Albuterol Inhaler [Ventolin Hfa 2 puff INHALATION RT-Q4H PRN 10/07/21 10/07/21 History Inhaler] Atorvastatin [Lipitor] 10 mg PO HS 10/07/21 10/07/21 History Co Q-10 200mg 200 mg PO HS 10/07/21 10/07/21 History [place]-3/Dha/Epa/Fish Oil [Fish Oil 1 cap PO HS 10/07/21 10/07/21 History 1,000 mg Softgel] Progesterone, Micronized 200 mg PO DAILY 10/07/21 10/07/21 History [Progesterone] traZODone HCL [Desyrel] 100 mg PO HS 10/07/21 10/07/21 History Allergies Allergy/AdvReac Type Severity Reaction Status Date / Time metoclopramide [From Reglan] Allergy SEVERE Verified 10/07/21 23:18 SHAKING OF LEGS codeine AdvReac Vomiting Verified 10/07/21 23:18 Physical Exam Vitals: Vital Signs Temp Pulse Pulse Resp BP BP Pulse Ox 10/08/21 08:00 92 18 10/08/21 07:00 97.9 F 92 18 118/78 97 10/08/21 02:00 16 10/08/21 01:59 98.3 F 87 16 95/58 97 10/07/21 23:12 97.9 F 94 16 96/55 98 10/07/21 21:15 97 18 108/69 98 10/07/21 20:08 105 H 98 10/07/21 18:48 98.3 F 121 H 16 150/85 100 Intake and Output 10/07/21 10/08/21 10/08/21 22:59 06:59 14:59 Intake Total 473 Balance 473 Intake: Oral 473 Other: # Voids 1 Weight 61.235 kg PHYSICAL EXAMINATION: Patient is lying in the bed comfortably, no acute distress, awake alert and oriented.. HEENT: Normocephalic. Neck is supple. Pupils reactive. Nostrils clear. Oral cavity is moist. Neck reveals no JVD, carotid bruits, or thyromegaly. CHEST EXAMINATION: Trachea is central. Symmetrical expansion. Lung carney clear to auscultation and percussion. CARDIAC: Normal S1, S2 with no gallops. No murmurs ABDOMEN: Soft. Bowel sounds present. Nontender. No organomegaly. No abdominal bruits. Right flank tenderness. Extremities: reveal no edema. No clubbing or cyanosis Neurologically awake, alert, oriented x3 with well-coordinated movements. No focal deficits noted Skin: No rash or skin lesions. Psychiatric: Coperative. Nonsuicidal, anxious. Musculoskeletal: No joint swelling or deformity. Normal range of motion. Results CBC & Chem 7: 10/08/21 03:41 10/08/21 03:41 Labs: Abnormal Lab Results - Last 24 Hours (Table) 10/07/21 10/07/21 10/07/21 Range/Units 19:32 19:32 19:32 RBC (3.80-5.40) m/uL MCV (80.0-100.0) fL Neutrophils # (1.3-7.7) k/uL Lymphocytes # 0.6 L (1.0-4.8) k/uL Sodium 133 L (137-145) mmol/L Chloride (98-107) mmol/L Carbon Dioxide 17 L (22-30) mmol/L Creatinine 1.26 H (0.52-1.04) mg/dL Glucose (74-99) mg/dL Plasma Lactic Acid [place] (0.7-2.0) mmol/L Calcium (8.4-10.2) mg/dL AST 54 H (14-36) U/L ALT 39 H (4-34) U/L Total Protein (6.3-8.2) g/dL Albumin (3.5-5.0) g/dL Urine Appearance Cloudy H (Clear) Urine Blood Small H (Negative) Ur Leukocyte Esterase Large H (Negative) Urine WBC 22 H (0-5) /hpf Urine WBC Clumps Few H (None) /hpf Urine Bacteria Few H (None) /hpf Urine Mucus Rare H (None) /hpf 10/07/21 10/07/21 10/08/21 Range/Units 19:32 22:51 03:41 RBC 3.47 L (3.80-5.40) m/uL MCV 101.2 H (80.0-100.0) fL Neutrophils # 8.2 H (1.3-7.7) k/uL Lymphocytes # (1.0-4.8) k/uL Sodium (137-145) mmol/L Chloride (98-107) mmol/L Carbon Dioxide (22-30) mmol/L Creatinine (0.52-1.04) mg/dL Glucose (74-99) mg/dL Plasma Lactic Acid [place] 3.3 H* 0.5 L (0.7-2.0) mmol/L Calcium (8.4-10.2) mg/dL AST (14-36) U/L ALT (4-34) U/L Total Protein (6.3-8.2) g/dL Albumin (3.5-5.0) g/dL Urine Appearance (Clear) Urine Blood (Negative) Ur Leukocyte Esterase (Negative) Urine WBC (0-5) /hpf Urine WBC Clumps (None) /hpf Urine Bacteria (None) /hpf Urine Mucus (None) /hpf 10/08/21 Range/Units 03:41 RBC (3.80-5.40) m/uL MCV (80.0-100.0) fL Neutrophils # (1.3-7.7) k/uL Lymphocytes # (1.0-4.8) k/uL Sodium 135 L (137-145) mmol/L Chloride 114 H (98-107) mmol/L Carbon Dioxide 20 L (22-30) mmol/L Creatinine 1.07 H (0.52-1.04) mg/dL Glucose 107 H (74-99) mg/dL Plasma Lactic Acid [place] (0.7-2.0) mmol/L Calcium 7.6 L (8.4-10.2) mg/dL AST 50 H (14-36) U/L ALT (4-34) U/L Total Protein 4.9 L (6.3-8.2) g/dL Albumin 2.7 L (3.5-5.0) g/dL Urine Appearance (Clear) Urine Blood (Negative) Ur Leukocyte Esterase (Negative) Urine WBC (0-5) /hpf Urine WBC Clumps (None) /hpf Urine Bacteria (None) /hpf Urine Mucus (None) /hpf Microbiology - Last 24 Hours (Table) 10/07/21 19:32 Urine Culture - Preliminary Urine,Clean Catch Thrombosis Risk Factor Assmnt - DVT/VTE Prophylaxis DVT/VTE Prophylaxis: Pharmacologic Prophylaxis ordered - Choose All That Apply Any of the Below Risk Factors Present?: Yes Each Factor Represents 1 point: Age 41-60 years Other Risk Factors: No Other congenital or acquired thrombophilia - If yes, enter type in comment: No Thrombosis Risk Factor Assessment Total Risk Factor Score: 1 Thrombosis Risk Factor Assessment Level: Low Risk Assessment and Plan Assessment: Right flank pain due to acute right sided pyelonephritis. Hypovolemic hyponatremia Lactic acidosis Hypothyroidism Anxiety Hyperlipidemia History of left kidney donation DVT prophylax with heparin subcu Plan: Patient will be continued on IV hydration and antibiotics in the form of ceftriaxone. Follow-up urine culture report. Patient was given a dose of ceftriaxone in her PCPs office prior to coming to ER. Patient was given a dose of morphine in the ER. Continue with pain management. Follow-up repeat labs. Continue with home medications. Time with Patient: Greater than 30
[2021-10-09] MEDS: SODIUM CHLORIDE 0.9% 1,000 ML IV SCH ×2 (02:31→08:45)
[2021-10-09] MEDS: LEVOTHYROXINE 112 MCG TAB PO SCH (05:41)
[2021-10-09] MEDS: HEPARIN SODIUM,PORCINE/PF 5,000 UNIT/0.5 ML SYRINGE SQ SCH (08:44)
[2021-10-09] MEDS: CITALOPRAM HYDROBROMIDE 20 MG TAB PO SCH (08:44)
[2021-10-09] MEDS: GABAPENTIN 100 MG CAP PO SCH (08:44)
[2021-10-09 09:14] LABS: African American GFR (CKD) 66.4 (60.0-200.0); Anion Gap 11.8 mmol/L (10.00-18.00); BUN/Creat Ratio 10.36 Ratio (12.00-20.00); Blood Urea Nitrogen 11.4 mg/dL (9.0-27.0); Calcium 8.7 mg/dL (8.7-10.3); Carbon Dioxide 19.2 mmol/L (20.0-27.5); Non-African American GFR(CKD) 57.3 (60.0-200.0); Potassium 4.5 mmol/L (3.5-5.5)
[2021-10-09 09:41] VITALS: BP 128/74; PULSE 94; RESP 16; TEMP 98.2
[2021-10-09 10:08] LABS: Basophils # (A) 0.03 X 10*3/uL (0.00-0.10); Basophils % (A) 0.3 %; Eosinophils # (A) 0.17 X 10*3/uL (0.04-0.35); Eosinophils % (A) 1.9 %; HCT 37.3 % (37.2-46.3); HGB 11.8 g/dL (12.0-15.0); Immature Grans, Automated 0.3 %; Lymphocytes # (A) 1.67 X 10*3/uL (0.90-5.00); Lymphocytes % (A) 18.8 %; MCH 31.8 pg (27.0-32.0); MCHC 31.6 g/dL (32.0-37.0); MCV 100.5 fL (80.0-97.0); Mean Platelet Volume 10.9 fL (9.5-12.2); Monocytes # (A) 0.71 X 10*3/uL (0.20-1.00); NRBC Per 100 WBC 0 /100 WBCS (0.0-0.0); Neutrophils # (A) 6.27 X 10*3/uL (1.80-7.70); Neutrophils % (A) 70.7 %; Platelet Count 153 X 10*3/uL (140-440); RBC 3.71 X 10*6/uL (4.10-5.20); RDW 12.2 % (11.5-14.5); WBC 8.88 X 10*3/uL (4.50-10.00)
[2021-10-09] MEDS: NON FORMULARY DRUG (Progesterone, Micronized [Progesterone] 200 MG Capsule) PO SCH (10:18)
--- NOTE | 2021-10-09 16:14 | P.DS ---
Providers Date of admission: 10/07/21 21:58 Attending physician: Goyo Flores Primary care physician: Mike [facility] Course: Diagnosis Right flank pain due to acute right sided pyelonephritis. Hypovolemic hyponatremia Lactic acidosis Hypothyroidism Anxiety Hyperlipidemia History of left kidney donation DVT prophylax with heparin subcu Full Code Discharge disposition Patient is stable for discharge. Continue oral antibiotics for 7 more days. Recommend to see primary care outpatient in 1-2 days. Urine culture negative. Symptoms have resolved. Hospital course This is a pleasant 51-year-old female with history of hypothyroidism, anxiety and history of left kidney donation presents to the ER with complaints of right flank pain. Patient states that right flank pain began the day before admission and she was also having chills at home. Primary care office diagnosed with UTI and given a dose of IV Rocephin office and sent patient home on Bactrim. Patient does report worsening of symptoms and felt like her heart was racing fast. He took ibuprofen and acetaminophen and came into the ER. Urine was noted to be malodorous and cloudy denies any suprapubic discomfort or dysuria with no history of renal stones. No frequency or urgency noted. Patient also denies chest pain, no shortness of breath. No nausea no vomiting or diarrhea. On admission patient was tachycardic with a heart rate of 121, respirations 16 and pulse ox 90% on room air. CT of the abdomen pelvis showed no evidence for renal stone or obstruction. No perinephritic edema to suggest pyelonephritis. Left nephrectomy noted. Labs showing a white count of 8.2, hemoglobin 12.7, platelet 156. Patient was found to be mildly dehydrated with a sodium of 133, potassium 4.0, BUN 17, creatinine 1.26 and lactic acid elevated at 3.3. Liver enzymes are also mildly elevated lipase is 144. Urinalysis showed cloudy with small blood and large leukocyte esterase of elevated WBCs. Patient was started on IV ceftriaxone and urine culture was negative showing normal madhu. Symptoms have improved and patient no longer reports right sided flank pain, denies fever or chills, no dysuria. There is no right CVA tenderness. White count 8.88, sodium has improved to 140. Creatinine 1.1. Her enzymes have improved, lactic acid now 0.5. Heart rate is in the 90s, blood pressure 128/74, 95% room air. Patient will be discharged home today. Review of Systems Constitutional: Denied any fatigue denied any fever. Cardio vascular: denied any chest pain, palpitations Gastrointestinal: denied any nausea, vomiting, diarrhea Pulmonary: Denied any shortness of breath cough Neurologic denied any new focal deficits All inpatient medications were reviewed and appropriate changes in these medications as dictated in the interval history and assessment and plan. PHYSICAL EXAMINATION: GENERAL: The patient is alert and oriented x3, not in any acute distress. Well developed, well nourished. HEENT: Pupils are round and equally reacting to light. EOMI. No scleral icterus. No conjunctival pallor. Normocephalic, atraumatic. No pharyngeal erythema. No thyromegaly. CARDIOVASCULAR: S1 and S2 present. No murmurs, rubs, or gallops. PULMONARY: Chest is clear to auscultation, no wheezing or crackles. ABDOMEN: Soft, nontender, nondistended, normoactive bowel sounds. No palpable organomegaly. MUSCULOSKELETAL: No joint swelling or deformity. EXTREMITIES: No cyanosis, clubbing, or pedal edema. NEUROLOGICAL: Gross neurological examination did not reveal any focal deficits. SKIN: No rashes. Please see medication reconciliation for list of current medications. Thank you for allowing us participate in the care of this patient. Total time taken in discharge planning greater than 35 minutes The impression and plan of care has been dictated by Angeline Sanders, Nurse Practitioner as directed. Dr. Sandra MD I have performed a history and physical examination and medical decision making of this patient, discussed the same with the dictator, and agree with the dictators assessment and plan as written, documented as a scribe. Based on total visit time, I have performed more than 50% of this visit. Patient Condition at Discharge: Stable Plan - Discharge Summary Discharge Rx Participant: No New Discharge Prescriptions: New Famotidine [Pepcid] 20 mg PO DAILY tab Acetaminophen Tab [Tylenol] 650 mg PO Q6HR PRN tab PRN Reason: Mild Pain Or Fever > 100.5 Cefdinir [Omnicef] 300 mg PO Q12HR 7 Days #14 capsule Continue Levothyroxine Sodium [Synthroid] 112 mcg PO DAILY Gabapentin [Neurontin] 100 mg PO BID Citalopram Hydrobromide [CeleXA] 40 mg PO DAILY [place]-3/Dha/Epa/Fish Oil [Fish Oil 1,000 mg Softgel] 1 cap PO HS traZODone HCL [Desyrel] 100 mg PO HS Albuterol Inhaler [Ventolin Hfa Inhaler] 2 puff INHALATION RT-Q4H PRN PRN Reason: Shortness Of Breath ALPRAZolam [Xanax] 0.5 mg PO DAILY PRN PRN Reason: Anxiety Co Q-10 200mg 200 mg PO HS Progesterone, Micronized [Progesterone] 200 mg PO DAILY Atorvastatin [Lipitor] 10 mg PO HS Discharge Medication List Citalopram Hydrobromide [CeleXA] 40 mg PO DAILY 06/14/17 [History] Gabapentin [Neurontin] 100 mg PO BID 06/14/17 [History] Levothyroxine Sodium [Synthroid] 112 mcg PO DAILY 06/14/17 [History] ALPRAZolam [Xanax] 0.5 mg PO DAILY PRN 10/07/21 [History] Albuterol Inhaler [Ventolin Hfa Inhaler] 2 puff INHALATION RT-Q4H PRN 10/07/21 [History] Atorvastatin [Lipitor] 10 mg PO HS 10/07/21 [History] Co Q-10 200mg 200 mg PO HS 10/07/21 [History] [place]-3/Dha/Epa/Fish Oil [Fish Oil 1,000 mg Softgel] 1 cap PO HS 10/07/21 [History] Progesterone, Micronized [Progesterone] 200 mg PO DAILY 10/07/21 [History] traZODone HCL [Desyrel] 100 mg PO HS 10/07/21 [History] Acetaminophen Tab [Tylenol] 650 mg PO Q6HR PRN tab 10/09/21 [Rx] Cefdinir [Omnicef] 300 mg PO Q12HR 7 Days #14 capsule 10/09/21 [Rx] Famotidine [Pepcid] 20 mg PO DAILY tab 10/09/21 [Rx] Follow up Appointment(s)/Referral(s): Mike Zapata DO [Primary Care Provider] - 1-2 days Ambulatory/Diagnostic Orders: Basic Metabolic Panel [LAB.AMB] Time Frame: 2 Days, Location: None Selected Patient Instructions/Handouts: Urinary Tract Infection in Women (ED) Activity/Diet/Wound Care/Special Instructions: Continue oral antibiotics twice a day for the next 7 days. Take pepcid for the duration of antibiotic therapy to avoid stomach upset Follow up with primary care in 1-2 days Return to ER if symptoms return, worsen. Monitor for fever. Discharge Disposition: HOME SELF-CARE
[2021-10-10] MEDS ORDERED: FAMOTIDINE 20 MG TAB PO SCH (09:00)
== END 2021-10-09 13:18 | disposition home or self-care (01) ==
LOC: EC 18:46 → 6NMEDSUR 21:58
PROVIDERS: ADMIT Internal Medicine; ATTEND Internal Medicine
DX: N10 Acute pyelonephritis (principal); E86.1 Hypovolemia; E87.1 Hypo-osmolality and hyponatremia; E87.2 Acidosis; E03.9 Hypothyroidism, unspecified; F41.9 Anxiety disorder, unspecified; E78.5 Hyperlipidemia, unspecified; Z90.2 Acquired absence of lung [part of]; R00.0 Tachycardia, unspecified; Z80.1 Family history of malignant neoplasm of trachea, bronchus and lung; Z79.890 Hormone replacement therapy; Z79.899 Other long term (current) drug therapy
CPT/HCPCS: 96361 ×2; 96366 ×2; 96372 ×2; 96365; 99284; 36415; 94640; 80053 ×2; 80048; 82150; 83605; 83690; 85025 ×3; 81001; 87086; 71045; 74176; G0378 ×3; J0696 ×3; J1644 ×2

== ENCOUNTER → 2021-10-13 | Outpatient (CLI) | payer BC ==
[2021-10-13 15:48] LABS: African American GFR (CKD) 59.8 (60.0-200.0); Anion Gap 12.2 mmol/L (10.00-18.00); BUN/Creat Ratio 11.33 Ratio (12.00-20.00); Blood Urea Nitrogen 13.6 mg/dL (9.0-27.0); Calcium 9.9 mg/dL (8.7-10.3); Carbon Dioxide 23.8 mmol/L (20.0-27.5); Non-African American GFR(CKD) 51.6 (60.0-200.0); Potassium 4.8 mmol/L (3.5-5.5)
== END | disposition home or self-care (01) ==
LOC: LABWHC1 07:57
PROVIDERS: ATTEND Nurse Practitioner Family
DX: E87.1 Hypo-osmolality and hyponatremia (principal); N17.9 Acute kidney failure, unspecified
CPT/HCPCS: 36415; 80048

== ENCOUNTER → 2021-10-13 | Outpatient (CLI) | payer BC ==
--- NOTE | 2021-10-14 09:14 | MM ---
Reason for Exam: Screening (asymptomatic). Last screening mammogram was performed 10 month(s) ago. Patient History: Menarche at age 9. First Full-Term at age 22. Postmenopausal. Currently using Estrogen, for 1 year. Currently using Progesterone, for 1 year. Hormonal Contraceptives for 7 years from age 15 until age 26. Maternal cousin had breast cancer, age 45. Maternal aunt had breast cancer at or over age 50. Risk Values: Nadine 5 year model risk: 1.1%. NCI Lifetime model risk: 8.4%. Prior Study Comparison: 11/04/2018 Bilateral Screening Mammogram, [facility]. 11/30/2019 Bilateral Screening Mammogram, [facility]. 12/10/2020 Bilateral Screening Mammogram, [facility]. Tissue Density: There are scattered fibroglandular densities. Findings: Analyzed By CAD. There is no suspicious group of microcalcifications or new suspicious mass in either breast. There is an asymmetric density in the upper outer quadrant of the left breast. Overall Assessment: Incomplete: need additional imaging evaluation, BI-RAD 0 Management: Diagnostic Mammogram of the left breast. A clinical breast exam by your physician is recommended on an annual basis and results should be correlated with mammographic findings. Electronically signed and approved by: Paulo Lujan M.D. Radiologis
== END | disposition home or self-care (01) ==
LOC: RADMAMWWP 12:56
PROVIDERS: ATTEND Family Medicine
DX: Z12.31 Encounter for screening mammogram for malignant neoplasm of breast (principal); Z78.0 Asymptomatic menopausal state; Z80.3 Family history of malignant neoplasm of breast
CPT/HCPCS: 77067

== ENCOUNTER → 2021-10-21 | Outpatient (CLI) | payer BC ==
--- NOTE | 2021-10-21 14:34 | MM ---
Reason for Exam: Additional evaluation requested from abnormal screening. Last screening mammogram was performed less than 1 month ago. Patient History: Menarche at age 9. First Full-Term at age 22. Postmenopausal. Currently using Estrogen, for 1 year. Currently using Progesterone, for 1 year. Hormonal Contraceptives for 7 years from age 15 until age 26. Maternal cousin had breast cancer, age 45. Maternal aunt had breast cancer at or over age 50. Risk Values: Nadine 5 year model risk: 1.1%. NCI Lifetime model risk: 8.4%. Prior Study Comparison: 11/30/2019 Bilateral Screening Mammogram, [facility]. 12/10/2020 Bilateral Screening Mammogram, [facility]. 10/13/2021 Bilateral MG screening mammo w CAD, [facility]. Tissue Density: Left: There are scattered fibroglandular densities. Findings: Analyzed By CAD. No persistent density on compression is evident. Asymmetric densities on the medial lateral view. Persistent density in the upper anterior portion however is not evident. Overall Assessment: Probably benign, BI-RAD 3 Management: Diagnostic Mammogram of the left breast in 6 months. A clinical breast exam by your physician is recommended on an annual basis and results should be correlated with mammographic findings. This exam should not preclude additional follow-up of suspicious palpable abnormalities. Results were given to the patient verbally at the time of exam. Electronically signed and approved by: Iain David D.O. Radiologis
== END | disposition home or self-care (01) ==
LOC: RADMAMWWP 13:35
PROVIDERS: ATTEND Family Medicine
DX: R92.8 Other abnormal and inconclusive findings on diagnostic imaging of breast (principal); Z78.0 Asymptomatic menopausal state
CPT/HCPCS: 77061; 77065

== ENCOUNTER → 2022-02-17 | Outpatient (CLI) | payer BC ==
--- NOTE | 2022-02-18 08:19 | MR ---
EXAMINATION TYPE: MR angio head wo con DATE OF EXAM: 02/17/2022 COMPARISON: Prior outside MRA brain 2020 HISTORY: Family hx aneurysm TECHNIQUE: Time of flight images focusing on the [place] of [place] were performed without contrast.. 2-D and 3-D postprocessing imaging is performed on the MRI scanner. FINDINGS: Codominant vertebral arteries patent to basilar junction. Patent bilateral posterior commun icating artery is better seen on current study with small caliber left posterior commuting artery not ed. No significant focal stenosis or aneurysm in the posterior circulation. Images of the anterior circulation show patent anterior communicating artery near image 92. There is no significant focal stenosis or aneurysm in the anterior circulation. IMPRESSION: No aneurysm at the level of the [place] of [place]. No significant change from prior outsid e study.
== END | disposition home or self-care (01) ==
LOC: RADMRIMAIN 13:00
PROVIDERS: ATTEND Nurse Practitioner Family
DX: Z82.49 Family history of ischemic heart disease and other diseases of the circulatory system (principal)
CPT/HCPCS: 70544

== ENCOUNTER → 2022-04-23 | Outpatient (CLI) | payer BC ==
--- NOTE | 2022-04-23 13:30 | MM ---
Reason for Exam: Follow-up at short interval from prior study. Last screening mammogram was performed 7 month(s) ago. Patient History: Menarche at age 9. First Full-Term at age 22. Postmenopausal. Patient has history of breast feeding. Currently using Estrogen, for 1 year. Currently using Progesterone, for 1 year. Hormonal Contraceptives for 7 years from age 15 until age 26. Maternal cousin had breast cancer, age 45. Maternal aunt had breast cancer at or over age 50. Risk Values: Nadine 5 year model risk: 1.1%. NCI Lifetime model risk: 8.4%. Prior Study Comparison: 12/10/2020 Bilateral Screening Mammogram, [facility]. 10/13/2021 Bilateral MG screening mammo w CAD, [facility]. 10/21/2021 Left MG 3D work up w/cad LT, [facility]. Tissue Density: Left: There are scattered fibroglandular densities. Findings: Analyzed By CAD. No suspicious mass, calcification or distortion. Overall Assessment: Negative, BI-RAD 1 Management: Screening Mammogram of both breasts in 1 year. A clinical breast exam by your physician is recommended on an annual basis and results should be correlated with mammographic findings. This exam should not preclude additional follow-up of suspicious palpable abnormalities. Results were given to the patient verbally at the time of exam. Electronically signed and approved by: Amando Taylor DO
== END | disposition home or self-care (01) ==
LOC: RADMAMWWP 12:56
PROVIDERS: ATTEND Obstetrics & Gynecology
DX: R92.8 Other abnormal and inconclusive findings on diagnostic imaging of breast (principal); Z78.0 Asymptomatic menopausal state; Z80.3 Family history of malignant neoplasm of breast
CPT/HCPCS: 77065

== ENCOUNTER → 2023-05-04 | Outpatient (CLI) | payer BC ==
--- NOTE | 2023-05-14 12:39 | P.CEMON ---
7 DAY EVENT MONITOR REPORT: INDICATION: Palpitations R00.2. START DATE: 05/04/2023 END DATE: 05/07/2023 Patient wore the monitor for 2.7 days FINDINGS: Overall poor quality study as patient only wore the monitor for less than 3 days Patient's baseline rhythm was [normal sinus rhythm]. Baseline heart rate was 87 beats per minute. There were no observed atrial fibrillation, atrial flutter or sustained ventricular rhythm. There were no observed sinus pauses which were more than 2 second long. Few PACs and PVCs Patient symptoms correlation: Patient reported events corresponded to NSR Overall normal 7 day monitor with only 2.7 day data. Non revealing for any cardiac reason that may explain syncope in this period. If symptoms persist, may consider longer term monitoring. Clinical correlation. Thank you for letting [facility] cardiology team to get involved in this patient's care. Please feel free to contact our office in case of any specific questions. Steven Oreilly MD, RPVI Cardiovascular Disease
== END | disposition home or self-care (01) ==
LOC: RADECHMAIN 08:00
PROVIDERS: ATTEND Family Medicine
DX: I49.3 Ventricular premature depolarization (principal); I49.1 Atrial premature depolarization; R00.2 Palpitations
CPT/HCPCS: 93270

== ENCOUNTER → 2023-05-26 | Outpatient (CLI) | payer BC ==
--- NOTE | 2023-05-27 09:02 | US ---
EXAMINATION TYPE: US thyroid st tissue head/neck DATE OF EXAM: 05/26/2023 COMPARISON: US 08/07/2015 CLINICAL INDICATION: Female, 52 years old with history of E03.8 OTHER SPECIFIED HYPOTHYROIDISM; Patie nt takes synthroid. GLAND SIZE: Right Lobe: 2.6 x 1.1 x 0.7 cm Overall Parenchyma: heterogenous. Left Lobe: 3.1 x 0.7 x 0.8 cm Overall Parenchyma: heterogenous. Isthmus Thickness: 0.22 cm Gland appears small in size. NODULES RIGHT: # of nodules measured on right: 0 LEFT: # of nodules measured on left: 0 ISTHMUS: # of nodules measured in the isthmus: 0 Bilateral neck scanned, no evidence of lymphadenopathy. IMPRESSION: Diminutive thyroid lobes. No solid or cystic nodule seen. 2017 ACR TI-RADS LEVEL: *Highest TI-RADS level nodule reported
== END | disposition home or self-care (01) ==
LOC: RADUSWWP 15:15
PROVIDERS: ATTEND Family Medicine
DX: E03.8 Other specified hypothyroidism (principal)
CPT/HCPCS: 76536

== ENCOUNTER → 2023-05-27 | Outpatient (CLI) | payer BC ==
--- NOTE | 2023-05-27 16:00 | MR ---
EXAMINATION TYPE: MR angio head wo con DATE OF EXAM: 05/27/2023 COMPARISON: Prior MRA of the head February 17, 2022 HISTORY: Prior on synapse, no current symptoms, strong family history of aneurysm, no seizure, no CVA , no CA TECHNIQUE: Time of flight images focusing on the [place] of [place] were performed without contrast.. 2-D and 3-D postprocessing imaging is performed on independent workstation and reviewed. FINDINGS: Codominant vertebral arteries patent to basilar junction are redemonstrated. Some areas of mild narrowing along the course of the basilar artery. Patent bilateral posterior communicating arter ies with small caliber left posterior communicating artery is redemonstrated. No significant focal st enosis or aneurysm in the posterior circulation. Images of the anterior circulation show patent anterior communicating artery near axial image 105 sim ilar to prior. There is no significant focal stenosis or new aneurysm in the anterior circulation. IMPRESSION: No aneurysm at the level of the [place] of [place]. No significant change from prior MRA st udy.
== END | disposition home or self-care (01) ==
LOC: RADMRIMAIN 07:33
PROVIDERS: ATTEND Family Medicine
DX: Z82.49 Family history of ischemic heart disease and other diseases of the circulatory system (principal)
CPT/HCPCS: 70544

== ENCOUNTER → 2023-06-17 | Outpatient (CLI) | payer BC ==
--- NOTE | 2023-06-17 20:42 | XR ---
EXAMINATION TYPE: XR Hip Complete RT DATE OF EXAM: 06/17/2023 COMPARISON: None HISTORY: Pain TECHNIQUE: 2 view right hip FINDINGS: Femoral head articulates with the acetabulum. Joint space is preserved. No acute fracture o r dislocation is evident Follow up exams can be performed 7-10 days from acute trauma for continued pain. IMPRESSION: 1. Normal appearing 2 view right hip
== END | disposition home or self-care (01) ==
LOC: RADXRMAIN 13:03
PROVIDERS: ATTEND Family Medicine
DX: M25.551 Pain in right hip (principal)
CPT/HCPCS: 73502

== ENCOUNTER → 2023-09-14 | Outpatient (CLI) | payer BC ==
[2023-09-14 18:23] LABS: Basophils # (A) 0.05 X 10*3/uL (0.00-0.10); Basophils % (A) 0.6 %; Eosinophils # (A) 0.25 X 10*3/uL (0.04-0.35); Eosinophils % (A) 2.8 %; HCT 40.7 % (37.2-46.3); HGB 13.4 g/dL (12.0-15.0); Lymphocytes # (A) 2.43 X 10*3/uL (0.90-5.00); Lymphocytes % (A) 27.2 %; MCH 32.8 pg (27.0-32.0); MCHC 32.9 g/dL (32.0-37.0); MCV 99.8 FL (80.0-97.0); Mean Platelet Volume 10.3 FL (9.5-12.2); Monocytes # (A) 0.75 X 10*3/uL (0.20-1.00); Monocytes % (A) 8.4 %; NRBC Per 100 WBC 0 X 10*3/uL (0.00-0.01); Neutrophils % (A) 60.4 %; Platelet Count 225 X 10*3/uL (140-440); RBC 4.08 X 10*6/uL (4.10-5.20); WBC 8.93 X 10*3/uL (4.50-10.00)
[2023-09-14 20:10] LABS: NT-Pro-B-Type Natriuretic Pept 39 pg/mL (0-125)
[2023-09-14 21:05] LABS: Albumin 4.4 g/dL (3.8-4.9); BUN/Creat Ratio 15.22 Ratio (12.00-20.00); Blood Urea Nitrogen 13.7 mg/dL (9.0-27.0); Calcium 9.3 mg/dL (8.7-10.3); Carbon Dioxide 19.5 mmol/L (21.6-31.8); Chloride 101 mmol/L (96-109); Glucose 113 mg/dL (70-110); Phosphorus 2.2 mg/dL (2.4-5.1); Potassium 4.6 mmol/L (3.5-5.5); Sodium 134 mmol/L (135-145)
== END | disposition home or self-care (01) ==
LOC: LABWHC1 12:54
PROVIDERS: ATTEND Family Medicine
DX: M79.89 Other specified soft tissue disorders (principal)
CPT/HCPCS: 36415; 80069; 83880; 85025

== ENCOUNTER → 2023-12-20 | Outpatient (CLI) | payer BC ==
--- NOTE | 2023-12-21 09:27 | MM ---
Reason for Exam: Screening (asymptomatic). Last screening mammogram was performed 12 month(s) ago. Patient History: Menarche at age 9. First Full-Term at age 22. Postmenopausal. Patient has history of breast feeding. Currently using Estrogen, beginning at age 49 for 1 year. Currently using Progesterone, beginning at age 49 for 1 year. Hormonal Contraceptives for 7 years from age 15 until age 26. Maternal cousin had breast cancer, age 45. Maternal aunt had breast cancer, age 75. Risk Values: Nadine 5 year model risk: 1.2%. NCI Lifetime model risk: 8.1%. Prior Study Comparison: 10/21/2021 Left MG 3D work up w/cad LT, [facility]. 04/23/2022 Left MG diagnostic mammo LT w CAD, [facility]. 12/16/2022 Bilateral MG 3D screening mammo w/cad, [facility]. Tissue Density: The breasts are heterogeneously dense, which may obscure small masses. Findings: Analyzed By CAD. There is no suspicious group of microcalcifications or new suspicious mass in either breast. Overall Assessment: Negative, BI-RAD 1 Management: Screening Mammogram of both breasts in 1 year. . Patient should continue monthly self-breast exams. A clinical breast exam by your physician is recommended on an annual basis. This exam should not preclude additional follow-up of suspicious palpable abnormalities. Note on Nadine scores and lifetime risk: 1. A Nadine score greater than 3% is considered moderate risk. If this is the case, consider specialist referral to assess eligibility for a risk reducing agent. 2. If overall lifetime risk for the development of breast cancer is 20% or higher, the patient may qualify for future screening with alternating mammogram and breast MRI. [facility], , 12/21/2023 9:23 AM. Electronically signed and approved by: Get Mckeon M.D. Radiologis
== END | disposition home or self-care (01) ==
LOC: RADMAMWWP 12:14
PROVIDERS: ATTEND Obstetrics & Gynecology
DX: Z12.31 Encounter for screening mammogram for malignant neoplasm of breast
CPT/HCPCS: 77063; 77067

== ENCOUNTER → 2024-03-08 | Outpatient (CLI) | payer BC ==
--- NOTE | 2024-03-08 09:26 | MM ---
Reason for Exam: Clinical finding. Last screening mammogram was performed 3 month(s) ago. Indicated Problems: Lump or thickening. Patient History: Menarche at age 9. First Full-Term at age 22. Postmenopausal. Patient has history of breast feeding. Currently using Estrogen, beginning at age 49 for 1 year. Currently using Progesterone, beginning at age 49 for 1 year. Hormonal Contraceptives for 7 years from age 15 until age 26. Maternal cousin had breast cancer, age 45. Maternal aunt had breast cancer, age 75. Risk Values: Nadine 5 year model risk: 1.2%. NCI Lifetime model risk: 8.1%. Prior Study Comparison: 04/23/2022 Left MG diagnostic mammo LT w CAD, [facility]. 12/16/2022 Bilateral MG 3D screening mammo w/cad, [facility]. 12/20/2023 Bilateral MG 3D screening mammo w/cad, [facility]. Tissue Density: Left: The breasts are heterogeneously dense, which may obscure small masses. Findings: Analyzed By CAD. No discrete mass at the site of clinical concern or within the left breast. No suspicious microcalcifications. Manage clinically. Ultrasound is advised. Overall Assessment: Incomplete: need additional imaging evaluation, BI-RAD 0 Management: Diagnostic Breast Ultrasound of the left breast. . Results were given to the patient verbally at the time of exam. Patient should continue monthly self-breast exams. A clinical breast exam by your physician is recommended on an annual basis. This exam should not preclude additional follow-up of suspicious palpable abnormalities. Note on Nadine scores and lifetime risk: 1. A Nadine score greater than 3% is considered moderate risk. If this is the case, consider specialist referral to assess eligibility for a risk reducing agent. 2. If overall lifetime risk for the development of breast cancer is 20% or higher, the patient may qualify for future screening with alternating mammogram and breast MRI. [facility], , 03/08/2024 9:21 AM. Electronically signed and approved by: Get Mckeon M.D. Radiologis
--- NOTE | 2024-03-08 10:08 | USB ---
Reason for Exam: Clinical finding. Patient History: Menarche at age 9. First Full-Term at age 22. Postmenopausal. Patient has history of breast feeding. Currently using Estrogen, beginning at age 49 for 1 year. Currently using Progesterone, beginning at age 49 for 1 year. Hormonal Contraceptives for 7 years from age 15 until age 26. Maternal cousin had breast cancer, age 45. Maternal aunt had breast cancer, age 75. Risk Values: Nadine 5 year model risk: 1.2%. NCI Lifetime model risk: 8.1%. Technique: Method: Targeted. Prior Study Comparison: 04/23/2022 Left MG diagnostic mammo LT w CAD, [facility]. 12/16/2022 Bilateral MG 3D screening mammo w/cad, [facility]. 12/20/2023 Bilateral MG 3D screening mammo w/cad, [facility]. Findings: The area of palpable concern of the left breast, the axilla of the left breast and the retroareolar of the left breast were scanned. No solid or cystic masses are identified.. Overall Assessment: Negative, BI-RAD 1 Management: Screening Mammogram of both breasts in 9 months. A clinical breast exam by your physician is recommended on an annual basis and results should be correlated with mammographic findings. This exam should not preclude additional follow-up of suspicious palpable abnormalities. Results were given to the patient verbally at the time of exam. [facility], , 03/08/2024 9:50 AM. Electronically signed and approved by: Get Mckeon M.D. Radiologis
== END | disposition home or self-care (01) ==
LOC: RADMAMWWP 08:58
PROVIDERS: ATTEND Obstetrics & Gynecology
DX: R92.8 Other abnormal and inconclusive findings on diagnostic imaging of breast (principal); R92.333 Mammographic heterogeneous density, bilateral breasts; N63.12 Unspecified lump in the right breast, upper inner quadrant; N64.4 Mastodynia; Z78.0 Asymptomatic menopausal state; Z80.3 Family history of malignant neoplasm of breast
CPT/HCPCS: 77061; 77065

== ENCOUNTER → 2024-06-13 | Outpatient (CLI) | payer OTHER ==
[2024-06-13 17:50] LABS: Basophils # (A) 0.06 X 10*3/uL (0.00-0.10); Basophils % (A) 0.6 %; Eosinophils # (A) 0.11 X 10*3/uL (0.04-0.35); Eosinophils % (A) 1.1 %; HCT 43.3 % (37.2-46.3); Lymphocytes # (A) 2.06 X 10*3/uL (0.90-5.00); Lymphocytes % (A) 20.1 %; MCH 32.6 pg (27.0-32.0); MCHC 32.3 g/dL (32.0-37.0); MCV 100.7 FL (80.0-97.0); Mean Platelet Volume 10.4 FL (9.5-12.2); Monocytes # (A) 0.76 X 10*3/uL (0.20-1.00); Monocytes % (A) 7.4 %; NRBC Per 100 WBC 0 X 10*3/uL (0.00-0.01); Neutrophils # (A) 7.21 X 10*3/uL (1.80-7.70); Neutrophils % (A) 70.4 %; Platelet Count 276 X 10*3/uL (140-440); RDW 12.3 % (11.5-14.5); WBC 10.24 X 10*3/uL (4.50-10.00)
[2024-06-13 18:21] LABS: ALT 36 U/L (8-44); AST 32 U/L (13-35); Albumin 4.3 g/dL (3.8-4.9); Albumin/Globulin Ratio 1.95 Ratio (1.60-3.17); Alkaline Phosphatase 143 U/L (41-126); BUN/Creat Ratio 14.11 Ratio (12.00-20.00); Blood Urea Nitrogen 12.7 mg/dL (9.0-27.0); Calcium 9.6 mg/dL (8.7-10.3); Carbon Dioxide 22.3 mmol/L (21.6-31.8); Chloride 105 mmol/L (96-109); Chol/HDL Ratio 2.18 Ratio; Globulin 2.2 g/dL (1.6-3.3); Glucose 84 mg/dL (70-110); Potassium 4.5 mmol/L (3.5-5.5); Sodium 138 mmol/L (135-145); T4, Free (Free Thyroxine) 1.87 ng/dL (0.80-1.80); Total Bilirubin 0.5 mg/dL (0.3-1.2); Total Protein 6.5 g/dL (6.2-8.2)
== END | disposition home or self-care (01) ==
LOC: LABWHC1 08:51
PROVIDERS: ATTEND Nurse Practitioner Family
DX: Z00.00 Encounter for general adult medical examination without abnormal findings (principal); E03.8 Other specified hypothyroidism; R03.0 Elevated blood-pressure reading, without diagnosis of hypertension
CPT/HCPCS: 36415; 80053; 80061; 83036; 84439; 84443; 84481; 85025

== ENCOUNTER → 2024-09-19 | Outpatient (CLI) | payer OTHER ==
[2024-09-19 18:03] LABS: Alternaria alternata IgE <0.10 kU/L; Aspergillus fumagatus IgE <0.10 kU/L; Cat Epith & Dander IgE 13.80 kU/L; Cladosporian herbarum IgE <0.10 kU/L; Dermato. farinae IgE 0.12 kU/L; Oak IgE <0.10 kU/L; Ragweed,Common IgE <0.10 kU/L; Red Top (Bentgrass) IgE <0.10 kU/L; Walnut IgE (Food) <0.10 kU/L
== END | disposition home or self-care (01) ==
LOC: LABWHC1 11:17
PROVIDERS: ATTEND Internal Medicine Critical Care Medicine
DX: J45.909 Unspecified asthma, uncomplicated (principal); L50.9 Urticaria, unspecified
CPT/HCPCS: 36415; 82785; 86003